=== PATIENT | female | born 1985 | race Caucasian/White ===

== ENCOUNTER → 2017-10-19 | Outpatient (CLI) | payer OTHER ==
[~2017-10-19] MED LIST: ACYC800 PO; ALBU90I INH; ALBU90OI INH; AMIT25 PO; AMOX500 PO; BUPR150ER PO; BUPR150T2 PO; Budeprion Sr150 MG; CELE200 PO; CLIN150 PO; CLIN300 PO; CODGUAEL PO; DEPAKOTE; DICL25ER PO; DIVA250EC PO; DOCU100 PO; DOXY100 PO; DULO30 PO; ESTR2 PO; FLUC150A PO; HYDACE5 PO; HYDMOR2 PO; IBUP800 PO; KETO10 PO; LAMO25 PO; LEVFLO500 PO; MELA3 PO; MULVITMINE; NAPR500 PO; NAPR550 PO; NORETHTP; NUVA RING; NYST100TC TOP; Neurontin 100100 MG PO; ONDA4 PO; PANT20 PO; PENVK500 PO; PERM5TC TOP; PRED20 PO; PROM25 PO; QUET25 PO; RANI150 PO; RXCLIN PO; RXHYDACE PO; RXNAPNA550 PO; RXPROM25 PO; RXTRAM50 PO; SIME80CH PO; TRAM50 PO; TRAZ100 PO; VALA500 PO; VALP250 PO; [UNRECOGNIZED DRUG - OTHER]; [UNRECOGNIZED DRUG - REMARK]
== END ==
LOC: LAB SHORT 11:22 → LAB 11:22
DX: F90.0 Attention-deficit hyperactivity disorder, predominantly inattentive type (principal)
CPT/HCPCS: G0480

== ENCOUNTER 2018-03-07 21:16 | Emergency (ER) | payer OTHER ==
[~2018-03-07] VITALS: Ht 167.6 cm; Wt 63.5 kg
== END 2018-03-07 22:16 | disposition home or self-care (01) ==
LOC: ER 21:16
DX: S90.32XA Contusion of left foot, initial encounter (principal); F31.9 Bipolar disorder, unspecified; F17.200 Nicotine dependence, unspecified, uncomplicated; Z88.8 Allergy status to other drugs, medicaments and biological substances; Z88.6 Allergy status to analgesic agent; Z79.899 Other long term (current) drug therapy; W22.8XXA Striking against or struck by other objects, initial encounter
CPT/HCPCS: 73630; 99283-25

== ENCOUNTER → 2019-01-06 | Outpatient (CLI) | payer OTHER ==
[2019-01-06 11:54] LABS: Source, Urine Clean Catch
[2019-01-06 12:25] LABS: Bacteria Not Seen /hpf; Red Blood Cells, Urine Not Seen /hpf (0-2); Squamous Epithelial Cells Few /hpf (Few); White Blood Cells, Urine 0-2 /hpf (0-5)
== END | disposition home or self-care (01) ==
LOC: LAB EV 11:52 → LAB SHORT 11:52
PROVIDERS: General Practice
DX: N39.0 Urinary tract infection, site not specified (principal)
CPT/HCPCS: 81015; 87086